=== PATIENT | male | born 1960 | race African-American/Black ===

== ENCOUNTER 2017-10-24 17:34 | Emergency (ER) | payer OTHER ==
[~2017-10-24] VITALS: Ht 182.9 cm; Wt 82.0 kg
[~2017-10-24 17:34] MED LIST: GABA-290 PO; GLYB5TAB7 PO
[2017-10-24 18:47] LABS: BASOPHILS % 0.8 % (0.0-2.0); EOSINOPHILS % 1.1 % (0.0-5.0); HEMATOCRIT. 44.9 % (42.0-52.0); HEMOGLOBIN. 14.7 g/dL (14.0-18.0); LYMPHOCYTES % 19.8 % (20.0-50.0); MEAN CORPUSCULAR HEMOGLOBIN 30.2 pg (28.0-32.0); MEAN CORPUSCULAR VOLUME 92.3 fL (80.0-94.0); MEAN PLATELET VOLUME 9.2 fl (7.4-10.4); MONOCYTES % 8.3 % (2.0-8.0); PLATELET 240 x1000/uL (130-400); RED BLOOD CELL COUNT 4.86 mill/uL (4.7-6.1); RED CELL DISTRIBUTION WIDTH 15.3 % (11.6-14.6)
[2017-10-24 18:53] LABS: CHLORIDE 95 mEq/L (98-107)
[2017-10-24 18:54] LABS: INR 2.1; PROTHROMBIN TIME 21.4 sec (9.4-11.6)
[2017-10-24 19:35] LABS: CREATINE KINASE 145 IU/L (39-308)
[2017-10-24] MEDS ORDERED: SODIUM CHLORIDE 0.9% 500 ML IV ONE (21:00)
[2017-10-24 23:35] LABS: CLARITY URINE TURBID (CLEAR); COLOR URINE DARK YELLOW (YELLOW); KETONES URINE TRACE (NEGATIVE); LEUKOCYTE ESTERASE URINE 1+ (NEGATIVE); NITRITE URINE POSITIVE (NEGATIVE); OCCULT BLOOD URINE NEGATIVE (NEGATIVE); PROTEIN URINE 1+ (NEGATIVE); SPECIFIC GRAVITY URINE 1.027 (1.005-1.030)
[2017-10-24 23:50] LABS: *AMPHETAMINES SCREEN URINE NEGATIVE (NEGATIVE); *BARBITURATES SCREEN URINE NEGATIVE (NEGATIVE); *BENZODIAZEPINES SCREEN URINE NEGATIVE (NEGATIVE); *COCAINE SCREEN URINE PRESUMTIVE POSITIVE (NEGATIVE); CANNABINOID URINE SCREEN NEGATIVE (NEGATIVE); METHADONE URINE SCREEN NEGATIVE (NEGATIVE); OPIATES URINE SCREEN PRESUMTIVE POSITIVE (NEGATIVE); PHENCYCLIDINE URINE SCREEN NEGATIVE (NEGATIVE)
[2017-10-25] MEDS ORDERED: AMOXICILLIN/POTASSIUM CLAVULANATE 875/125MG TAB PO ONE (00:30)
[2017-10-25 02:18] VITALS: BP 106/78
== END 2017-10-25 02:30 | disposition home or self-care (01) ==
LOC: ER 17:34
DX: T40.5X1A Poisoning by cocaine, accidental (unintentional), initial encounter (principal); N30.00 Acute cystitis without hematuria; I11.0 Hypertensive heart disease with heart failure; I50.9 Heart failure, unspecified; E78.00 Pure hypercholesterolemia, unspecified; E11.9 Type 2 diabetes mellitus without complications; Y92.018 Other place in single-family (private) house as the place of occurrence of the external cause
CPT/HCPCS: 36415; 70450; 71045; 80053; 80305; 81003; 82550; 85025; 85610; 93005; 96360; 99285; J7040; Z7610

== ENCOUNTER 2017-12-08 20:17 | Inpatient (IN) | payer OTHER ==
[~2017-12-08] VITALS: Ht 185.4 cm; Wt 119.3 kg
[2017-12-08] MEDS ORDERED: ONDANSETRON HCL 4MG/2ML VIAL IV STA (21:17)
[2017-12-08] MEDS ORDERED: ASPIRIN 81MG TABLET PO STA (21:17)
[2017-12-08] MEDS ORDERED: FUROSEMIDE 40MG/4ML VIAL IV STA (21:17)
[2017-12-08 22:02] LABS: BASOPHILS % 0.2 % (0.0-2.0); EOSINOPHILS % 0.5 % (0.0-5.0); HEMATOCRIT. 45.6 % (42.0-52.0); HEMOGLOBIN. 14.7 g/dL (14.0-18.0); LYMPHOCYTES % 17.6 % (20.0-50.0); MEAN CORPUSCULAR HEMOGLOBIN 29.4 pg (28.0-32.0); NEUTROPHILS % 75.7 % (40.0-76.0); PLATELET 197 x1000/uL (130-400); RED BLOOD CELL COUNT 5.01 mill/uL (4.7-6.1); RED CELL DISTRIBUTION WIDTH 17.1 % (11.6-14.6)
[2017-12-08 22:03] LABS: CHLORIDE 100 mEq/L (98-107)
[2017-12-08 22:12] LABS: CREATINE KINASE 341 IU/L (39-308)
[2017-12-08 22:18] LABS: D-DIMER 7.07 mg/L FEU (<0.50); INR 2.4; PARTIAL THROMBOPLASTIN TIME 35.8 sec (23.4-31.0); PROTHROMBIN TIME 24.7 sec (9.4-11.6)
[2017-12-08] MEDS ORDERED: DEXTROSE 50% WATER 50ML SYRINGE IV ONE (22:30)
[2017-12-09] MEDS ORDERED: CLONIDINE 0.1MG TABLET PO PRN (00:45)
[2017-12-09] MEDS ORDERED: MAGNESIUM/ALUMINUM HYDROXIDE/SIMETHICONE 30ML UDC PO PRN (00:45)
[2017-12-09] MEDS ORDERED: IPRATROPIUM/ALBUTEROL 0.5-3(2.5)MG/3ML NEB INH PRN (00:45)
[2017-12-09] MEDS ORDERED: ACETAMINOPHEN 325MG TABLET PO PRN (00:45)
[2017-12-09] MEDS ORDERED: HYDROCODONE/ACETAMINOPHEN 5/325MG TABLET PO PRN (00:45)
[2017-12-09] MEDS ORDERED: ONDANSETRON HCL 4MG/2ML VIAL IV PRN (00:45)
[2017-12-09] MEDS ORDERED: ENOXAPARIN 40MG/0.4ML SYR SUBCUT SCH (00:45)
[2017-12-09] MEDS ORDERED: DOCUSATE SODIUM 100MG CAPSULE PO PRN (00:45)
[2017-12-09 08:00] VITALS: BP 91/62
[2017-12-09] MEDS ORDERED: GLIP10TA10 PO (08:48)
[2017-12-09] MEDS ORDERED: GABA-533 PO (08:48)
[2017-12-09] MEDS ORDERED: HYDR12.54 PO (08:48)
[2017-12-09] MEDS ORDERED: CARV12.545 PO (08:48)
[2017-12-09] MEDS ORDERED: BENA20TA3 PO (08:48)
[2017-12-09 09:01] VITALS: BP 91/62
[2017-12-09] MEDS: FUROSEMIDE 40MG/4ML VIAL IV SCH ×2 (09:36→17:44)
[2017-12-09 09:47] LABS: BASOPHILS % 0.4 % (0.0-2.0); EOSINOPHILS % 0.4 % (0.0-5.0); HEMATOCRIT. 45.6 % (42.0-52.0); HEMOGLOBIN. 14.8 g/dL (14.0-18.0); LYMPHOCYTES % 23.2 % (20.0-50.0); MEAN CORPUSCULAR HEMOGLOBIN 29.1 pg (28.0-32.0); MEAN CORPUSCULAR VOLUME 89.7 fL (80.0-94.0); MEAN PLATELET VOLUME 9.1 fl (7.4-10.4); MONOCYTES % 6.3 % (2.0-8.0); NEUTROPHILS % 69.7 % (40.0-76.0); PLATELET 219 x1000/uL (130-400); RED BLOOD CELL COUNT 5.09 mill/uL (4.7-6.1); RED CELL DISTRIBUTION WIDTH 16.9 % (11.6-14.6)
[2017-12-09 10:01] LABS: CHLORIDE 98 mEq/L (98-107)
[2017-12-09 10:10] LABS: CREATINE KINASE 381 IU/L (39-308); HDL CHOLESTEROL 23 mg/dL (40-59); LDL CHOLESTEROL 118 mg/dL (5-100)
[2017-12-09 10:11] LABS: CREATINE KINASE MB FRACTION 12.7 ng/mL (0.5-3.6)
[2017-12-09 12:00] VITALS: BP 89/49
[2017-12-09] MEDS ORDERED: GUAIFENESIN 200MG/10ML SUGAR FREE UDC PO PRN (14:15)
[2017-12-09] MEDS ORDERED: DEXTROSE 50% WATER 50ML SYRINGE IV PRN (15:30)
[2017-12-09 16:00] VITALS: BP 84/64
[2017-12-09 16:06] LABS: CREATINE KINASE MB FRACTION 11.9 ng/mL (0.5-3.6)
[2017-12-09] MEDS: INSULIN LISPRO 100 UNITS/ML SUBCUT SCH ×2 (17:15→20:55)
[2017-12-09] MEDS: BLOOD SUGAR DIAGNOSTIC STRIP TEST SCH ×2 (17:16→20:55)
[2017-12-09] MEDS: PHENYLEPHRINE/SHK LV/MO/PET,WH RECTAL OINT 30GM PR SCH ×2 (17:44→23:58)
[2017-12-09 20:00] VITALS: BP 85/56
[2017-12-10] VITALS (15 sets, daily range): BP systolic 86–133; BP diastolic 38–94
[2017-12-10] MEDS: OMEPRAZOLE 20MG CAPSULE EXTENDED RELEASE PO SCH (06:22)
[2017-12-10] MEDS: BLOOD SUGAR DIAGNOSTIC STRIP TEST SCH ×4 (06:22→21:32)
[2017-12-10] MEDS: PHENYLEPHRINE/SHK LV/MO/PET,WH RECTAL OINT 30GM PR SCH ×3 (06:23→18:45)
[2017-12-10] MEDS: INSULIN LISPRO 100 UNITS/ML SUBCUT SCH ×4 (07:20→21:00)
[2017-12-10] MEDS: FUROSEMIDE 40MG/4ML VIAL IV SCH ×2 (08:43→16:14)
[2017-12-10 08:47] LABS: CLARITY URINE CLEAR (CLEAR); COLOR URINE DARK YELLOW (YELLOW); KETONES URINE NEGATIVE (NEGATIVE); LEUKOCYTE ESTERASE URINE NEGATIVE (NEGATIVE); NITRITE URINE NEGATIVE (NEGATIVE); OCCULT BLOOD URINE 1+ (NEGATIVE); PROTEIN URINE NEGATIVE (NEGATIVE); SPECIFIC GRAVITY URINE 1.018 (1.005-1.030)
[2017-12-10 09:17] LABS: *AMPHETAMINES SCREEN URINE NEGATIVE (NEGATIVE)
[2017-12-10 09:18] LABS: *BARBITURATES SCREEN URINE NEGATIVE (NEGATIVE); *BENZODIAZEPINES SCREEN URINE NEGATIVE (NEGATIVE); *COCAINE SCREEN URINE PRESUMTIVE POSITIVE (NEGATIVE); METHADONE URINE SCREEN NEGATIVE (NEGATIVE)
[2017-12-10 09:19] LABS: CANNABINOID URINE SCREEN NEGATIVE (NEGATIVE); OPIATES URINE SCREEN PRESUMTIVE POSITIVE (NEGATIVE); PHENCYCLIDINE URINE SCREEN NEGATIVE (NEGATIVE)
[2017-12-10 12:03] LABS: HEPATITIS B SURFACE ANTIGEN NEGATIVE
[2017-12-10] MEDS: DOCUSATE SODIUM 100MG CAPSULE PO SCH ×2 (12:26→16:14)
[2017-12-10 12:31] LABS: HEPATITIS B CORE AB IGM NEGATIVE
[2017-12-10 12:32] LABS: HEPATITIS A AB IGM NEGATIVE (NEGATIVE)
[2017-12-10] MEDS: GABAPENTIN 400MG CAPSULE PO SCH ×2 (14:01→21:32)
[2017-12-10] MEDS ORDERED: LORAZEPAM 2MG/ML CPJ IV PRN (15:30)
[2017-12-10] MEDS ORDERED: THIAMINE HCL 100MG TABLET PO NR (16:00)
[2017-12-10] MEDS ORDERED: NICOTINE 21MG PATCH TD NR (17:00)
[2017-12-11] VITALS (15 sets, daily range): BP systolic 114–142; BP diastolic 71–92
[2017-12-11] MEDS: IPRATROPIUM/ALBUTEROL 0.5-3(2.5)MG/3ML NEB HHN SCH ×4 (02:30→20:30)
[2017-12-11] MEDS: BUDESONIDE 0.5MG/2ML NEB HHN SCH ×3 (02:31→20:30)
[2017-12-11] MEDS: GABAPENTIN 400MG CAPSULE PO SCH ×2 (05:56→13:41)
[2017-12-11] MEDS: OMEPRAZOLE 20MG CAPSULE EXTENDED RELEASE PO SCH (05:56)
[2017-12-11] MEDS: PHENYLEPHRINE/SHK LV/MO/PET,WH RECTAL OINT 30GM PR SCH ×4 (05:57→18:31)
[2017-12-11] MEDS: BLOOD SUGAR DIAGNOSTIC STRIP TEST SCH ×3 (05:58→16:50)
[2017-12-11] MEDS: INSULIN LISPRO 100 UNITS/ML SUBCUT SCH ×3 (07:20→17:20)
[2017-12-11 07:49] LABS: BASOPHILS % 0.4 % (0.0-2.0); EOSINOPHILS % 2.7 % (0.0-5.0); HEMATOCRIT. 43.1 % (42.0-52.0); HEMOGLOBIN. 13.8 g/dL (14.0-18.0); LYMPHOCYTES % 30.5 % (20.0-50.0); MEAN CORPUSCULAR HEMOGLOBIN 28.4 pg (28.0-32.0); MONOCYTES % 11.1 % (2.0-8.0); NEUTROPHILS % 55.3 % (40.0-76.0); PLATELET 177 x1000/uL (130-400); RED BLOOD CELL COUNT 4.84 mill/uL (4.7-6.1)
[2017-12-11 07:56] LABS: CHLORIDE 94 mEq/L (98-107)
[2017-12-11 08:01] LABS: PHOSPHORUS 2.8 mg/dL (2.5-4.9)
[2017-12-11] MEDS: FUROSEMIDE 40MG/4ML VIAL IV SCH (08:33)
[2017-12-11] MEDS: DOCUSATE SODIUM 100MG CAPSULE PO SCH ×2 (08:34→17:00)
[2017-12-11] MEDS ORDERED: THIAMINE HCL 100MG TABLET PO SCH (09:00)
[2017-12-11] MEDS ORDERED: MULTIVITAMINS,THER W-MINERALS TABLET PO SCH (09:00)
[2017-12-11] MEDS ORDERED: FOLIC ACID 1MG TABLET PO SCH (09:00)
[2017-12-11] MEDS ORDERED: NICOTINE 21MG PATCH TD SCH (09:00)
[2017-12-11] MEDS ORDERED: POTASSIUM CHLORIDE 20MEQ TABLET SR PO SCH (11:00)
[2017-12-11] MEDS ORDERED: MAGNESIUM 2 G PREMIX 50 ML IV NR (14:30)
[2017-12-11] MEDS ORDERED: DOCUSATE SODIUM 250MG CAPSULE PO SCH (14:50)
[2017-12-11] MEDS ORDERED: BISACODYL 10MG SUPP PR SCH (15:00)
[2017-12-11] MEDS ORDERED: POTASSIUM CHLORIDE 20MEQ TABLET SR PO ONE (18:45)
[2017-12-11] MEDS ORDERED: FUROSEMIDE 40MG TABLET PO SCH (21:00)
[2017-12-12] MEDS ORDERED: FAMOTIDINE 20MG TABLET PO SCH (09:00)
[2017-12-14 14:19] LABS: FECAL FAT NEUTRAL Normal (.); FECAL FAT TOTAL Normal (.)
== END 2017-12-11 22:35 | disposition short-term general hospital (02) | DRG 190 ==
LOC: ER 20:27 → 5WST 12-09 00:14 → EDBEDREQ 12-09 00:19 → ENRESERV 12-09 04:56 → 3WST 12-09 21:31
PROVIDERS: ADMIT Internal Medicine; ATTEND Internal Medicine
PROC: 0JB70ZZ Excision of Back Subcutaneous Tissue and Fascia, Open Approach (ICD-10-PCS; principal; 2017-12-10)
DX: I21.4 Non-ST elevation (NSTEMI) myocardial infarction (principal); J96.00 Acute respiratory failure, unspecified whether with hypoxia or hypercapnia; I50.43 Acute on chronic combined systolic (congestive) and diastolic (congestive) heart failure; L89.153 Pressure ulcer of sacral region, stage 3; E87.2 Acidosis; D68.9 Coagulation defect, unspecified; R65.10 Systemic inflammatory response syndrome (SIRS) of non-infectious origin without acute organ dysfunction; I11.0 Hypertensive heart disease with heart failure; J68.0 Bronchitis and pneumonitis due to chemicals, gases, fumes and vapors; I42.9 Cardiomyopathy, unspecified; I95.9 Hypotension, unspecified; K80.10 Calculus of gallbladder with chronic cholecystitis without obstruction; K85.90 Acute pancreatitis without necrosis or infection, unspecified; R19.7 Diarrhea, unspecified; F14.10 Cocaine abuse, uncomplicated; E87.6 Hypokalemia; K92.1 Melena; E83.42 Hypomagnesemia; E11.42 Type 2 diabetes mellitus with diabetic polyneuropathy; E11.649 Type 2 diabetes mellitus with hypoglycemia without coma; E66.9 Obesity, unspecified; E78.00 Pure hypercholesterolemia, unspecified; F19.10 Other psychoactive substance abuse, uncomplicated; E78.5 Hyperlipidemia, unspecified; F41.9 Anxiety disorder, unspecified; I25.10 Atherosclerotic heart disease of native coronary artery without angina pectoris; I83.90 Asymptomatic varicose veins of unspecified lower extremity; K59.00 Constipation, unspecified; Z79.84 Long term (current) use of oral hypoglycemic drugs; Z79.899 Other long term (current) drug therapy; Z83.3 Family history of diabetes mellitus; Z91.14 Patient's other noncompliance with medication regimen
CPT/HCPCS: 36415; 71045; 76700; 80048; 80053; 80061; 80076; 80305; 81003; 82150; 82550; 82553; 82705; 82962; 83605; 83690; 83735; 83880; 84100; 84443; 84478; 84484; 85025; 85379; 85610; 85730; 86705; 86709; 86803; 87015; 87040; 87045; 87177; 87209; 87340; 87427; 87449; 87493; 89055; 93005; 93970; 94640; 96374; 96375; 97162; 99285; J1940; J2405; J3475; J7620; J7626